=== PATIENT | male | born 1965 | race Caucasian/White ===

== ENCOUNTER → 2021-07-29 | Outpatient (CLI) | payer OTHER ==
[2021-07-29 12:02] LABS: ALBUMIN 4.5 GM/DL (3.2-5.2); BLOOD UREA NITROGEN 19 MG/DL (7-18); CALCIUM LEVEL 9.4 MG/DL (8.5-10.1); CARBON DIOXIDE LEVEL 30 MEQ/L (21-32); CHLORIDE LEVEL 107 MEQ/L (98-107); CREATININE FOR GFR 1.26 MG/DL (0.70-1.30); GLOMERULAR FILTRATION RATE > 60.0 (>56); GLUCOSE, FASTING 95 MG/DL (70-100); PHOSPHORUS LEVEL 3.7 MG/DL (2.5-4.9); POTASSIUM SERUM 4.1 MEQ/L (3.5-5.1); SODIUM LEVEL 142 MEQ/L (136-145)
[2021-07-29 12:09] LABS: MALB URINE SIEMENS 9.3 MG/L; MAU/CREAT RATIO 6.7 MCG/MG (0.0-30.0)
== END ==
LOC: M LAB 10:15
PROVIDERS: ATTEND Internal Medicine Cardiovascular Disease
DX: I10 Essential (primary) hypertension (principal)

== ENCOUNTER → 2021-09-15 | Outpatient (CLI) | payer OTHER ==
[2021-09-15 16:08] LABS: HEMATOCRIT 42.9 % (42.0-52.0); HEMOGLOBIN 14.3 g/dl (13.5-17.5); MEAN CORPUSCULAR HEMOGLOBIN 31.3 pg (27.0-33.0); MEAN CORPUSCULAR HGB CONC 33.3 g/dl (32.0-36.5); MEAN CORPUSCULAR VOLUME 93.9 fl (80.0-96.0); PLATELET COUNT, AUTOMATED 291 10^3/uL (150-450); RED BLOOD COUNT 4.57 10^6/uL (4.30-6.10); WHITE BLOOD COUNT 6.5 10^3/uL (4.0-10.0)
[2021-09-15 16:23] LABS: BLOOD UREA NITROGEN 30 MG/DL (7-18); CALCIUM LEVEL 9.5 MG/DL (8.5-10.1); CARBON DIOXIDE LEVEL 31 MEQ/L (21-32); CHLORIDE LEVEL 108 MEQ/L (98-107); GLOMERULAR FILTRATION RATE > 60.0 (>56); GLUCOSE, FASTING 93 MG/DL (70-100); POTASSIUM SERUM 3.9 MEQ/L (3.5-5.1); SODIUM LEVEL 143 MEQ/L (136-145)
== END ==
LOC: M WUC 14:09
PROVIDERS: ATTEND Internal Medicine Cardiovascular Disease
DX: I20.8 Other forms of angina pectoris (principal); I10 Essential (primary) hypertension

== ENCOUNTER → 2023-07-19 | Outpatient (REF) | payer OTHER ==
[2023-07-19 17:53] LABS: BASO # 0.1 10^3/uL (0.0-0.2); BASO % 0.8 % (0.0-1.0); EOS # 0.1 10^3/uL (0.0-0.5); EOS % 1.6 % (0.0-3.0); HEMOGLOBIN 15.2 g/dl (13.5-17.5); LYMPH # 1.9 10^3/uL (1.5-5.0); LYMPH % 24.2 % (24.0-44.0); MEAN CORPUSCULAR HEMOGLOBIN 31.1 pg (27.0-33.0); MEAN CORPUSCULAR HGB CONC 34.5 g/dl (32.0-36.5); MEAN CORPUSCULAR VOLUME 90.2 fl (80.0-96.0); MONO # 0.7 10^3/uL (0.0-0.8); MONO % 8.9 % (2.0-8.0); NEUTROPHILS # 5.1 10^3/uL (1.5-8.5); NEUTROPHILS % 64.2 % (36.0-66.0); PLATELET COUNT, AUTOMATED 339 10^3/uL (150-450); RED BLOOD COUNT 4.88 10^6/uL (4.30-6.10); WHITE BLOOD COUNT 7.9 10^3/uL (4.0-10.0)
[2023-07-19 18:03] LABS: ALBUMIN 4.6 G/DL (3.2-5.2); ALKALINE PHOSPHATASE 102 U/L (46-116); ALT/SGPT 29 U/L (7.0-40); AST/SGOT 22 U/L (<34); BILIRUBIN,TOTAL 0.4 MG/DL (0.3-1.2); BLOOD UREA NITROGEN 24 MG/DL (9-23); CALCIUM LEVEL 9.8 MG/DL (8.5-10.1); CARBON DIOXIDE LEVEL 31 MMOL/L (20-31); CHLORIDE LEVEL 100 MMOL/L (98-107); CHOLESTEROL LEVEL 151 MG/DL (<200); CHOLESTEROL RISK RATIO 3.44 (<5); CREATININE FOR GFR 1.17 MG/DL (0.70-1.30); GLOMERULAR FILTRATION RATE > 60.0 (>56); GLUCOSE, FASTING 95 MG/DL (60-100); HDL CHOLESTEROL 43.8 MG/DL (>40); LDL CHOLESTEROL 80.8 MG/DL (<100); NON-HDL-C 107.2 MG/DL; POTASSIUM SERUM 3.3 MMOL/L (3.5-5.1); SODIUM LEVEL 142 MMOL/L (136-145); TRIGLYCERIDES LEVEL 132 MG/DL (<150)
== END ==
LOC: M LAB REF 16:39
PROVIDERS: ATTEND Pediatrics
DX: I10 Essential (primary) hypertension (principal); E78.5 Hyperlipidemia, unspecified; Z12.5 Encounter for screening for malignant neoplasm of prostate

== ENCOUNTER → 2024-01-24 | Outpatient (REF) | payer OTHER, MEDICAID ==
[2024-01-24 13:12] LABS: ALBUMIN 4.5 G/DL (3.2-5.2); ALKALINE PHOSPHATASE 110 U/L (46-116); ALT/SGPT 27 U/L (7.0-40); AST/SGOT 18 U/L (<34); BILIRUBIN,TOTAL 0.6 MG/DL (0.3-1.2); BLOOD UREA NITROGEN 24 MG/DL (9-23); CALCIUM LEVEL 10.2 MG/DL (8.5-10.1); CARBON DIOXIDE LEVEL 32 MMOL/L (20-31); CHLORIDE LEVEL 101 MMOL/L (98-107); CHOLESTEROL LEVEL 157 MG/DL (<200); CHOLESTEROL RISK RATIO 3.72 (<5); CREATININE FOR GFR 1.05 MG/DL (0.70-1.30); GLOMERULAR FILTRATION RATE > 60.0 (>56); GLUCOSE, FASTING 119 MG/DL (60-100); HDL CHOLESTEROL 42.1 MG/DL (>40); LDL CHOLESTEROL 89.1 MG/DL (<100); NON-HDL-C 114.9 MG/DL; POTASSIUM SERUM 3.5 MMOL/L (3.5-5.1); SODIUM LEVEL 140 MMOL/L (136-145); TOTAL PROTEIN 7.6 G/DL (5.7-8.2); TRIGLYCERIDES LEVEL 129 MG/DL (<150)
== END ==
LOC: M LAB REF 12:31
PROVIDERS: ATTEND Pediatrics
DX: E78.5 Hyperlipidemia, unspecified (principal)

== ENCOUNTER 2024-06-30 02:29 | Emergency (ER) | payer OTHER ==
[2024-06-30] VITALS (9 sets, daily range): BP systolic 124–152; BP diastolic 64–88; TEMP 98–98.8; O2SAT 94–99
[~2024-06-30] VITALS: Ht 175.3 cm; Wt 114.3 kg
[2024-06-30 03:01] LABS: BASO % 0.3 % (0.0-1.0); EOS # 0.1 10^3/uL (0.0-0.5); HEMATOCRIT 31.4 % (42.0-52.0); HEMOGLOBIN 10.8 g/dl (13.5-17.5); LYMPH # 2.3 10^3/uL (1.5-5.0); LYMPH % 25.8 % (24.0-44.0); MEAN CORPUSCULAR HEMOGLOBIN 31.5 pg (27.0-33.0); MEAN CORPUSCULAR HGB CONC 34.4 g/dl (32.0-36.5); MEAN CORPUSCULAR VOLUME 91.5 fl (80.0-96.0); MONO # 0.4 10^3/uL (0.0-0.8); MONO % 4.7 % (2.0-8.0); NEUTROPHILS # 5.9 10^3/uL (1.5-8.5); NEUTROPHILS % 67.6 % (36.0-66.0); PLATELET COUNT, AUTOMATED 367 10^3/uL (150-450); RED BLOOD COUNT 3.43 10^6/uL (4.30-6.10); WHITE BLOOD COUNT 8.8 10^3/uL (4.0-10.0)
[2024-06-30 03:13] LABS: INR 1.02; PROTHROMBIN TIME 13.7 SECONDS (12.5-14.5)
[2024-06-30 03:25] LABS: LIPASE 35 U/L (12-53)
[2024-06-30 03:27] LABS: ALBUMIN 3.6 G/DL (3.2-5.2); ALKALINE PHOSPHATASE 89 U/L (40-129); ALT/SGPT 23 U/L (7.0-40); AST/SGOT 11 U/L (<34); BILIRUBIN,DIRECT 0.1 MG/DL (<0.4); BILIRUBIN,TOTAL 0.3 MG/DL (0.3-1.2); BLOOD UREA NITROGEN 50 MG/DL (9-23); CALCIUM LEVEL 9.7 MG/DL (8.3-10.6); CARBON DIOXIDE LEVEL 30 MMOL/L (20-31); CHLORIDE LEVEL 104 MMOL/L (98-107); CK-MB VALUE MASS < 1.0 NG/ML (<3.6); CREATININE FOR GFR 1.09 MG/DL (0.70-1.30); GLOMERULAR FILTRATION RATE > 60.0 (>49); GLUCOSE, FASTING 155 MG/DL (74-106); POTASSIUM SERUM 3.5 MMOL/L (3.5-5.1); SODIUM LEVEL 142 MMOL/L (136-145); TOTAL PROTEIN 7.1 G/DL (5.7-8.2)
[2024-06-30 03:33] LABS: CPK CREATINE PHOSPHOKINASE 81 U/L (46-171); MB/CK RELATIVE INDEX 1.23 (< OR =4)
[2024-06-30] MEDS: PANTOPRAZOLE 40MG VIAL IV ONE (03:40)
[2024-06-30] MEDS: NS 2,500 ML in IV 1 EA IV ONE (03:45)
[2024-06-30] MEDS ORDERED: ISOVUE-370 76% 100ML VIAL As Ordered ONE (04:12)
[2024-06-30 05:12] LABS: BASO % 0.2 % (0.0-1.0); LYMPH # 0.9 10^3/uL (1.5-5.0); MEAN CORPUSCULAR HEMOGLOBIN 31.8 pg (27.0-33.0); MEAN CORPUSCULAR HGB CONC 34.4 g/dl (32.0-36.5); MEAN CORPUSCULAR VOLUME 92.3 fl (80.0-96.0); MONO # 0.5 10^3/uL (0.0-0.8); MONO % 3.8 % (2.0-8.0); NEUTROPHILS # 10.9 10^3/uL (1.5-8.5); NEUTROPHILS % 88.4 % (36.0-66.0); PLATELET COUNT, AUTOMATED 276 10^3/uL (150-450); RED BLOOD COUNT 2.61 10^6/uL (4.30-6.10); WHITE BLOOD COUNT 12.3 10^3/uL (4.0-10.0)
[2024-06-30 05:29] LABS: HEMATOCRIT 24.1 % (42.0-52.0); HEMOGLOBIN 8.3 g/dl (13.5-17.5)
== END 2024-06-30 09:05 | disposition short-term general hospital (02) ==
LOC: EDBD 02:29 → M ED 02:29
DX: K92.0 Hematemesis (principal); D50.0 Iron deficiency anemia secondary to blood loss (chronic); K92.2 Gastrointestinal hemorrhage, unspecified; K57.30 Diverticulosis of large intestine without perforation or abscess without bleeding; N40.0 Benign prostatic hyperplasia without lower urinary tract symptoms; K42.0 Umbilical hernia with obstruction, without gangrene; I10 Essential (primary) hypertension; E78.5 Hyperlipidemia, unspecified; K21.9 Gastro-esophageal reflux disease without esophagitis; Z86.73 Personal history of transient ischemic attack (TIA), and cerebral infarction without residual deficits
CPT/HCPCS: 36430; 71260; 74174; 80048; 80076; 82550; 82553; 83690; 84484; 85025; 85610; 86850; 86900; 86901; 86920; 87486; 87581; 87633; 87798; 93005; 93041; 96374; 99285; J2470; P9016; Q9967

== ENCOUNTER → 2024-11-20 | Outpatient (REF) | payer OTHER ==
[2024-11-20 17:58] LABS: CREATININE, URINE 48.4 MG/DL; MALB URINE SIEMENS < 3.0 MG/L
[2024-11-20 19:12] LABS: BLOOD UREA NITROGEN 20 MG/DL (9-23); CALCIUM LEVEL 9.5 MG/DL (8.3-10.6); CARBON DIOXIDE LEVEL 30 MMOL/L (20-31); CHLORIDE LEVEL 99 MMOL/L (98-107); CHOLESTEROL LEVEL 104 MG/DL (<200); CHOLESTEROL RISK RATIO 3.35 (<5); CREATININE FOR GFR 1.11 MG/DL (0.70-1.30); GLOMERULAR FILTRATION RATE > 60.0 (>49); GLUCOSE, FASTING 100 MG/DL (74-106); LDL CHOLESTEROL 49.4 MG/DL (<100); POTASSIUM SERUM 3.6 MMOL/L (3.5-5.1); PROSTATIC SPECIFIC AG MONITOR 0.32 NG/ML (< 4.00); SODIUM LEVEL 140 MMOL/L (136-145); TRIGLYCERIDES LEVEL 118 MG/DL (<150)
[2024-11-20 19:13] LABS: THYROID STIMULATING HORMONE 1.259 uIU/ML (0.55-4.78)
== END ==
LOC: M LAB REF 17:04
PROVIDERS: ATTEND Pediatrics
DX: I10 Essential (primary) hypertension (principal); E78.5 Hyperlipidemia, unspecified; Z12.5 Encounter for screening for malignant neoplasm of prostate

== ENCOUNTER → 2025-08-09 | Outpatient (CLI) | payer OTHER | LOC: M RAD 13:47 | PROVIDERS: ATTEND Pediatrics | DX: Z12.2 Encounter for screening for malignant neoplasm of respiratory organs (principal); I25.10 Atherosclerotic heart disease of native coronary artery without angina pectoris; K44.9 Diaphragmatic hernia without obstruction or gangrene ==

== ENCOUNTER 2025-08-13 20:40 | Inpatient (IN) | payer OTHER ==
[~2025-08-13] VITALS: Ht 175.3 cm; Wt 111.4 kg
[2025-08-13 21:13] LABS: PLATELET COUNT, AUTOMATED 328 10^3/uL (150-450)
[2025-08-13 21:40] LABS: ETHYL ALCOHOL (ETHANOL) < 0.003 % (0.000-0.010)
[2025-08-13 21:42] LABS: ALT/SGPT 48 U/L (7.0-40); AST/SGOT 47 U/L (<34); CALCIUM LEVEL 9.8 MG/DL (8.3-10.6); CARBON DIOXIDE LEVEL 22 MMOL/L (20-31); CHLORIDE LEVEL 101 MMOL/L (98-107); CREATININE FOR GFR 1.49 MG/DL (0.70-1.30); GLOMERULAR FILTRATION RATE 53.1 (>49); POTASSIUM SERUM 3.6 MMOL/L (3.5-5.1); SALICYLATE LEVEL < 3.0 MG/DL (<30); SODIUM LEVEL 139 MMOL/L (136-145)
[2025-08-13 22:15] LABS: BARBITURATES URINE NEGATIVE (NEGATIVE)
[2025-08-13 22:16] LABS: AMPHETAMINES LEVEL URINE NEGATIVE (NEGATIVE); BENZODIAZEPINES URINE NEGATIVE (NEGATIVE); COCAINE METABOLITE URINE NEGATIVE (NEGATIVE); METHADONE URINE NEGATIVE (NEGATIVE); OPIATES URINE NEGATIVE (NEGATIVE); PHENCYCLIDINE URINE NEGATIVE (NEGATIVE)
[2025-08-13 22:17] LABS: CANNABINOIDS URINE POSITIVE (NEGATIVE)
[2025-08-14] MEDS ORDERED: NICOTINE 14 MG/24 HR TRANSDERMAL TD SCH (09:00)
[2025-08-14] MEDS ORDERED: TELM1TAB PO (09:50)
[2025-08-14] MEDS ORDERED: POTA1TAB23 PO (09:50)
[2025-08-14] MEDS ORDERED: HOME MED LIST COMPLETE! XX SCH (09:50)
[2025-08-14] MEDS ORDERED: AMLO1TAB25 PO (09:50)
[2025-08-14] MEDS ORDERED: OMEP-173 PO (09:50)
[2025-08-14] MEDS: POTASSIUM CHLORIDE 10MEQ SR TABLET PO SCH (10:19)
[2025-08-14] MEDS: OMEPRAZOLE 20MG CAP PO SCH (10:20)
[2025-08-14 10:23] VITALS: BP 125/79
[2025-08-14] MEDS: amLODIPine 10 MG TAB PO SCH (10:23)
[2025-08-14] MEDS ORDERED: IBUPROFEN 400 MG TAB PO PRN (13:25)
[2025-08-14] MEDS ORDERED: OLANZapine 5 MG TAB PO PRN (13:25)
[2025-08-14] MEDS ORDERED: ACETAMINOPHEN 325 MG TAB PO PRN (13:25)
[2025-08-14] MEDS ORDERED: LORazepam 1 MG TAB PO PRN (13:25)
[2025-08-14] MEDS ORDERED: MOM 30 ML SUSPENSION UDC PO PRN (13:25)
[2025-08-14] MEDS ORDERED: HALOPERIDOL 5 MG TAB PO PRN (13:25)
[2025-08-14] MEDS ORDERED: OMEPRAZOLE 20MG CAP PO SCH (21:00)
[2025-08-15 06:43] VITALS: BP 137/67; TEMP 97.3; O2SAT 98
[2025-08-15] MEDS ORDERED: amLODIPine 10 MG TAB PO SCH (09:00)
[2025-08-15] MEDS ORDERED: POTASSIUM CHLORIDE 10MEQ SR TABLET PO SCH (09:00)
[2025-08-15 16:26] VITALS: BP 152/76; TEMP 97.9; O2SAT 98
[2025-08-15] MEDS: DIVALPROEX 250 MG *ER* TAB PO SCH (21:00)
[2025-08-16 06:26] VITALS: BP 139/70; TEMP 98; O2SAT 98
[2025-08-16 16:10] VITALS: BP 130/82; TEMP 97.8; O2SAT 98
[2025-08-16] MEDS: DIVALPROEX 500 MG *ER* TAB PO SCH (20:54)
[2025-08-17 06:28] VITALS: BP 125/82; TEMP 97; O2SAT 99
[2025-08-17 14:31] VITALS: BP 132/86; TEMP 97; O2SAT 97
[2025-08-18] MEDS: MAALOX 30 ML SUSP *UDC PO PRN (01:14)
[2025-08-18 06:21] VITALS: BP 132/80; TEMP 97.8; O2SAT 98
[2025-08-18 14:58] VITALS: BP 160/84; TEMP 97.7; O2SAT 96
[2025-08-18] MEDS: traZODone 50 MG TAB PO PRN (21:24)
[2025-08-19 06:28] VITALS: BP 141/79; TEMP 97.2; O2SAT 98
[2025-08-19 15:27] VITALS: BP 140/70; TEMP 97.3; O2SAT 99
[2025-08-20 06:27] VITALS: BP 124/74; TEMP 97.2; O2SAT 96
[2025-08-20 16:25] VITALS: BP 154/76; TEMP 97; O2SAT 98
[2025-08-21 06:25] VITALS: BP 140/72; TEMP 97.3; O2SAT 99
[2025-08-21 18:47] VITALS: BP 136/81; TEMP 97.3
[2025-08-22 06:16] VITALS: BP 146/85; TEMP 96.8; O2SAT 98
[2025-08-22] MEDS ORDERED: ABIL1TAB11 PO (09:54)
[2025-08-22] MEDS ORDERED: DEPA500T2 PO (09:54)
== END 2025-08-22 11:25 | disposition home or self-care (01) | DRG 753 ==
LOC: M ED 20:40 → M ED INP 08-14 13:54 → M PSY 08-14 15:12
PROVIDERS: ADMIT Internal Medicine; ATTEND Internal Medicine
DX: F39 Unspecified mood [affective] disorder (principal); I10 Essential (primary) hypertension; K21.9 Gastro-esophageal reflux disease without esophagitis; Z87.891 Personal history of nicotine dependence; Z79.899 Other long term (current) drug therapy; N17.9 Acute kidney failure, unspecified; E86.0 Dehydration; E66.01 Morbid (severe) obesity due to excess calories; Z68.36 Body mass index [BMI] 36.0-36.9, adult